=== PATIENT | female | born 1985 | race Caucasian/White ===

== ENCOUNTER 2020-07-11 23:01 | Observation (INO) | payer OTHER ==
[~2020-07-11] VITALS: Ht 167.6 cm; Wt 77.1 kg
[2020-07-11 23:14] VITALS: BP 156/90
[2020-07-11 23:28] LABS: URINE BILIRUBIN NEGATIVE (Negative); URINE BLOOD NEGATIVE (Negative); URINE CLARITY CLEAR; URINE COLOR STRAW; URINE GLUCOSE-RANDOM NEGATIVE (Negative); URINE KETONES NEGATIVE (Negative); URINE LEUKOCYTES-REFLEX TRACE (Negative); URINE NITRITE-REFLEX NEGATIVE (Negative); URINE PROTEIN NEGATIVE (Negative); URINE UROBILINOGEN 0.2 E.U./dl (0.2-1.0)
[2020-07-11 23:35] LABS: AMP/METHAMP Negative (Negative); BARBITURATES Negative (Negative); BENZODIAZEPINES Negative (Negative); COCAINE Negative (Negative); METHADONE Negative (Negative); OPIATES Negative (Negative); PCP Negative (Negative); THC Negative (Negative)
[2020-07-11 23:47] LABS: SQUAMOUS 4-10 Moderate /LPF (0-3)
[2020-07-11 23:48] LABS: BACTERIA-REFLEX 1-9 Few /HPF (None Seen); CASTS None Seen /LPF (None Seen); CRYSTALS None Seen /LPF (None Seen); URINE RBC None Seen /HPF (0-2); URINE WBC-REFLEX 0-5 Rare /HPF (0-5)
[2020-07-11 23:58] LABS: ABSOLUTE EOSINOPHILS 0.1 thou/uL (0.0-0.7); ABSOLUTE LYMPHOCYTES 1.7 thou/uL (0.8-5.3); ABSOLUTE MONOCYTES 0.6 thou/uL (0.0-1.2); ABSOLUTE NEUTROPHILS 5.9 thou/uL (1.6-8.1); BASOPHILS 0.4 %; HEMATOCRIT 36.7 % (37.0-47.0); HEMOGLOBIN 12.8 gm/dL (12.0-15.0); LYMPHOCYTES 20.5 %; MCH 29.9 pg (26.0-34.0); MCHC 34.9 g/dL (28.0-37.0); MCV 85.8 fL (80.0-100.0); MONOCYTES 7.1 %; MPV 8.5 fl. (7.2-11.1); NUCLEATED RBCS 0 /100WBC; PLATELET COUNT* 181 thou/uL (150-400); RBC 4.27 mil/uL (4.20-5.00); RDW-CV 13.6 % (10.5-14.5); WBC 8.3 thou/uL (4.0-11.0)
[2020-07-12 00:16] LABS: CREATININE 0.7 mg/dL (0.6-1.3); POTASSIUM 3.5 mmol/L (3.5-5.1)
[2020-07-12 00:20] LABS: ALBUMIN 3.6 g/dL (3.4-5.0); TOTAL BILIRUBIN 0.3 mg/dL (<0.1-1.0); TOTAL PROTEIN 6.3 g/dL (6.4-8.2)
[2020-07-12 03:05] VITALS: BP 147/89
[2020-07-12 03:13] VITALS: BP 140/83
[2020-07-12 07:40] VITALS: BP 120/74
[2020-07-12 15:48] VITALS: BP 117/77
[2020-07-12 20:00] VITALS: BP 114/65
[2020-07-13 04:58] LABS: ALBUMIN 3.1 g/dL (3.4-5.0); CALCIUM 8.4 mg/dL (8.5-10.1); CREATININE 0.7 mg/dL (0.6-1.3); MAGNESIUM 2.1 mg/dL (1.8-2.4); POTASSIUM 3.6 mmol/L (3.5-5.1); TOTAL BILIRUBIN 0.4 mg/dL (<0.1-1.0); TOTAL PROTEIN 5.6 g/dL (6.4-8.2)
[2020-07-13 05:05] LABS: HEMATOCRIT 37.5 % (37.0-47.0); HEMOGLOBIN 12.8 gm/dL (12.0-15.0); MCH 29.5 pg (26.0-34.0); MCHC 34.3 g/dL (28.0-37.0); MCV 86.1 fL (80.0-100.0); MPV 8.5 fl. (7.2-11.1); RBC 4.35 mil/uL (4.20-5.00); RDW-CV 13.2 % (10.5-14.5); WBC 6.8 thou/uL (4.0-11.0)
[2020-07-13 05:07] LABS: GLYCOHEMOGLOBIN (HGB A1C) 4.8 % (4.8-5.6)
[2020-07-13 08:00] VITALS: BP 121/76
[2020-07-13] MEDS ORDERED: TRAMADOL 50 MG50 MG PO (08:23)
[2020-07-13] MEDS ORDERED: ZOFRAN ODT4 MG PO (08:23)
[2020-07-13] MEDS ORDERED: BACTRIM DS TAB1 EAC1 PO (08:31)
[2020-07-13 11:07] VITALS: BP 114/65
[2020-07-13 17:03] VITALS: BP 114/65
== END 2020-07-13 17:30 | disposition home or self-care (01) ==
LOC: M.ERS 23:01 → M.ORTHSURG 07-12 01:28 → M.TBA-ER 07-12 01:28 → M.ORTHSURG 07-12 03:22
PROVIDERS: Emergency Medicine; Internal Medicine; ADMIT Family Medicine; ATTEND Family Medicine
DX: R10.11 Right upper quadrant pain (principal); N39.0 Urinary tract infection, site not specified; R11.2 Nausea with vomiting, unspecified; K59.00 Constipation, unspecified; Z79.899 Other long term (current) drug therapy; Z20.822 Contact with and (suspected) exposure to COVID-19

== ENCOUNTER 2021-04-20 01:22 | Emergency (ER) | payer OTHER ==
[~2021-04-20] VITALS: Ht 167.6 cm; Wt 79.4 kg
[~2021-04-20 01:22] MED LIST: BACTRIM DS TAB1 EAC1 PO; TRAMADOL 50 MG50 MG PO; ZOFRAN ODT4 MG PO
[2021-04-20 01:26] VITALS: BP 140/120
[2021-04-20 02:11] LABS: INFLUENZA A ANTIGEN Negative (Negative); INFLUENZA B ANTIGEN Negative (Negative)
== END 2021-04-20 02:06 | disposition left against medical advice (07) ==
LOC: M.ERS 01:22
PROVIDERS: Personal Emergency Response Attendant
DX: R06.02 Shortness of breath (principal); Z20.822 Contact with and (suspected) exposure to COVID-19